=== PATIENT | female | born 2000 | race American Indian/Alaskan Native ===

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

== ENCOUNTER 2020-11-29 15:54 | Outpatient (CLI) | payer MEDICAID, OTHER ==
[2020-11-29] MEDS ORDERED: LACTATED RINGERS 500 ML IV ONE (18:03)
[2020-11-29 18:07] VITALS: BP 119/71
[2020-11-29 18:27] LABS: Bilirubin,Urine NEG (Negative); Blood,Urine NEG (Negative); Color,Urine Straw (Yellow); Mucus,Urine FEW /HPF; Protein,Urine <15 mg/dL mg/dL (Negative); Urobilinogen,Urine < 2.0 mg/dL (<2.0)
== END 2020-11-29 19:22 | disposition home or self-care (01) ==
LOC: TRG 15:54 → APU 15:55 → TRG 19:22
PROVIDERS: ATTEND Obstetrics & Gynecology
DX: O42.912 Preterm premature rupture of membranes, unspecified as to length of time between rupture and onset of labor, second trimester (principal); Z3A.27 27 weeks gestation of pregnancy
CPT/HCPCS: 36415; 59025; 81001; 84112; 87086